=== PATIENT | female | born 1990 | race Caucasian/White ===

== ENCOUNTER 2017-03-27 16:39 | Emergency (ER) | payer MEDICAID ==
[~2017-03-27] VITALS: Ht 188 cm; Wt 108.9 kg
[2017-03-27 17:57] VITALS: BP 128/85
== END 2017-03-27 17:58 | disposition home or self-care (01) ==
LOC: ER 16:42
DX: L03.011 Cellulitis of right finger (principal)
CPT/HCPCS: A4606; A6402; Z7610